=== PATIENT | female | born 1945 | race Caucasian/White ===

== ENCOUNTER 2019-07-07 18:56 | Inpatient (IN) | payer MEDICARE ==
[~2019-07-07] VITALS: Ht 157.5 cm; Wt 54.0 kg
[2019-07-07 19:07] VITALS: BP 160/77
--- NOTE | 2019-07-07 19:07 | NUR ---
PT BIB AMBULANCE. TRANSFERRED TO BED #1
--- NOTE | 2019-07-07 19:35 | NUR ---
74 Y/O FEMALE BIBA FROM HOME. PRESENTS TO ED, CHIEF COMPLAINT OF SYNCOPE. PT STATES REACHING FOR HER PHONE WHEN SHE FELT DIZZINESS AND FAINTED. PT DENIES ANY HEAD TRAUMA. PT C/O OF LOWER BACK AND LEFT KNEE PAIN, 03/15. NO DEFORMITY NOTED. NO BLEEDING NOTED. PT AOX4. DENIES ANY DIZZINESS OR HEADACHE DURING ASSESSMENT. PT PLACED ON MONITOR. PT AT STABLE CONDITION. WILL CONTINUE TO MONITOR.
[2019-07-07 19:58] LABS: BASOPHILS # (AUTO) 0.1 K/uL (0.00-0.22); BASOPHILS % (AUTO) 1.1 % (0.0-2.0); EOSINOPHILS # (AUTO) 0.2 K/uL (0-0.4); EOSINOPHILS % (AUTO) 3.8 % (0.0-4.0); HEMOGLOBIN 10.6 g/dL (12.0-16.0); LYMPHOCYTES # (AUTO) 2.3 K/uL (2.5-16.5); LYMPHOCYTES % (AUTO) 41.8 % (20.5-51.1); MEAN CORPUSCULAR HEMOGLOBIN 31 pg (27-31); MEAN CORPUSCULAR HGB CONC 33 g/dL (33-37); MONOCYTES # (AUTO) 0.7 K/uL (0.8-1.0); MONOCYTES % (AUTO) 13.4 % (1.7-9.3); NEUTROPHILS # (AUTO) 2.1 K/uL (1.8-7.7); NEUTROPHILS % (AUTO) 39.9 % (42.2-75.2); PLATELET COUNT (AUTO) 235 K/uL (140-450); RED CELL DISTRIBUTION WIDTH 14.1 % (11.6-13.7); WHITE BLOOD COUNT (AUTO) 5.4 K/uL (4.8-10.8)
--- NOTE | 2019-07-07 20:18 | NUR ---
PT TAKEN CT Addendum: 07/07/19 at 2036 by [email or web address] PT TAKEN TO XRAY
[2019-07-07 20:23] LABS: ANION GAP 13.7 (8-16); CARBON DIOXIDE 24.4 mmol/L (21-32); CHLORIDE 93 mmol/L (98-107); CREATININE 1.2 mg/dL (0.6-1.3); GLUCOSE 84 mg/dL (74-106); POTASSIUM 4.1 mmol/L (3.5-5.1); SODIUM SERUM 127 mmol/L (136-145); UREA NITROGEN, BLOOD 26 mg/dL (7-18)
[2019-07-07 20:30] LABS: ALBUMIN 3.4 g/dL (3.4-5.0); ASPARTATE AMINOTRANSFERASE 67 U/L (15-37); TOTAL BILIRUBIN 0.4 mg/dL (0.0-1.0)
[2019-07-07] MEDS ORDERED: MORPHINE SULFATE 4 MG/ML SYR IVP ONE (20:30)
[2019-07-07] MEDS ORDERED: ONDANSETRON 4 MG/2 ML VIAL IVP ONE (20:30)
--- NOTE | 2019-07-07 20:50 | NUR ---
PERFORMED STRAIGHT CATH. PT TOLERATED PROCEDURE. 200ML URINE COLLECTED.
[2019-07-07 21:30] LABS: APPEARANCE,URINE CLEAR (CLEAR); BILIRUBIN,URINE NEGATIVE (NEGATIVE); BLOOD, URINE NEGATIVE (NEGATIVE); COLOR,URINE YELLOW (YELLOW); LEUKOCYTE ESTERASE ,URINE NEGATIVE (NEGATIVE); NITRITE, URINE NEGATIVE (NEGATIVE); PH,URINE 6.5 (5.0-9.0); UGLUCOSE NEGATIVE (NEGATIVE)
--- NOTE | 2019-07-07 22:46 | NUR ---
PT LAYING IN BED, RR EVEN AND UNLABORED. REPORTS 5/10 TOLERABLE POSTERIOR NECK PAIN AT THIS TIME. PT ABLE TO AMBULATE WITH STEADY GAIT AND MINIMAL 1 PERSON ASSIST TO RESTROOM, DENIES DIZZINESS. DR GRIFFIN SPOKE WITH PT, AGREED TO ADMIT PT FOR OBSERVATION. ALL NEEDS MET.
--- NOTE | 2019-07-07 23:00 | NUR ---
DAUGHTER WILL BRING THE HOME MEDICATION LIST TOMORROW.
[2019-07-07] MEDS ORDERED: MECLIZINE 25 MG TAB PO PRN (23:10)
[2019-07-07] MEDS ORDERED: LORazepam 2 MG/ML VIAL IM/IVP PRN (23:10)
[2019-07-07] MEDS ORDERED: ACETAMINOPHEN 325 MG TAB PO PRN (23:10)
[2019-07-07] MEDS ORDERED: ZOLPIDEM 5 MG TAB PO PRN (23:10)
[2019-07-07] MEDS ORDERED: MORPHINE SULFATE 2 MG/ML SYR IVP PRN (23:10)
[2019-07-07] MEDS ORDERED: DOCUSATE SODIUM 100 MG GELCAP PO PRN (23:10)
[2019-07-07 23:47] LABS: BARBITURATE, URINE NEG. ng/ml (NEG <=200); BENZODIAZEPINE, URINE NEG. ng/mL (NEG <=200); CANNABINOID, URINE NEG. ng/mL (NEG <=50); COCAINE, URINE NEG. ng/mL (NEG <=300); OPIATE, URINE NEG. ng/mL (NEG <=2000); PHENCYCLIDINE SCREEN,URINE NEG. ng/mL (NEG <=25)
--- NOTE | 2019-07-07 23:55 | NUR ---
PT TRANSFERRED TO [facility]. REPORT GIVEN TO ADINA REYES. PT AT STABLE CONDITION.
[2019-07-08] VITALS: BP 151/65
--- NOTE | 2019-07-08 | NUR ---
Patient arrived in unit via gurney, assisted by FORESTER AIDE. Patient able to ambulate from rney to bed with 1-person assist. Patient A/Ox4, able to make needs known, Belgian speaking. Introduced self, updated board, oriented patient to room and hospital environment. No SOB or distress noted, on room air. IV site noted on left antecubital, 20 gauge, intact. Vitals upon admission are as follows: BP 151/65, HR 70, RR 16, Temp 97.8, O2Sat 100% on room air. Chief complaint is acute hip pain and neck pain, s/p fall. DX is Syncope, Weakness. Skin intact. Bed in the lowest position, call light within reach. Initial assessment done. Will continue to monitor.
[2019-07-08] MEDS ORDERED: HYDR12.543 PO ×2 (00:09→00:40)
[2019-07-08] MEDS ORDERED: ROPI0.256 PO ×2 (00:09→00:40)
[2019-07-08] MEDS ORDERED: MIRT15TA PO ×2 (00:09→00:40)
[2019-07-08] MEDS ORDERED: METO25TA PO ×2 (00:09→00:40)
[2019-07-08 00:19] LABS: PROTHROMBIN TIME 9.9 secs (10.8-13.4)
[2019-07-08 00:20] LABS: MAGNESIUM 1.7 mg/dL (1.8-2.4); PHOSPHORUS 3.3 mg/dL (2.5-4.9); THYROID STIMULATING HORMONE 0.08 uIU/mL (0.34-3.74)
[2019-07-08] MEDS: NACL 0.9% 1,000 ML IV SCH ×3 (00:30→22:24)
[2019-07-08] MEDS: METOPROLOL 25 MG TAB PO SCH ×3 (00:31→20:29)
[2019-07-08] MEDS ORDERED: PNEUMOCOCCAL VACCINE 23 MCG/0.5 ML VIAL IMVAC SCH (00:50)
--- NOTE | 2019-07-08 02:10 | NUR ---
Checks made; patient resting comfortably, visible chest rise and fall noted.
[2019-07-08 04:00] VITALS: BP 132/62
--- NOTE | 2019-07-08 04:15 | NUR ---
Rounds done; patient asleep, eyes closed, visible chest rise and fall noted.
--- NOTE | 2019-07-08 06:10 | NUR ---
Vitals stable, due meds given. Will endorse to AM shift RN for continuity of care.
--- NOTE | 2019-07-08 07:10 | NUR ---
REPORT RECEIVED FROM NURSE DAHLIA PT SLEEPING, AROUSABLE TO VERBAL STIMULI. DENIES PAIN OR DISCOMFORT. NO S/S OF ACUTE DISTRESS NOTED AT THIS TIME. CALL LIGHT AND PERSONAL ITEMS WITHIN EASY REACH, SAFETY AND FALL PRECAUTIONS IN PLACE,NO S/S OF ACUTE DISTRESS AT THIS TIME, WILL CONTINUE TO MONITOR.
[2019-07-08 08:00] VITALS: BP 148/77
[2019-07-08 08:21] LABS: BASOPHILS # (AUTO) 0.1 K/uL (0.00-0.22); BASOPHILS % (AUTO) 1.3 % (0.0-2.0); EOSINOPHILS # (AUTO) 0.2 K/uL (0-0.4); EOSINOPHILS % (AUTO) 4.2 % (0.0-4.0); HEMATOCRIT 30.9 % (36-48); HEMOGLOBIN 10.4 g/dL (12.0-16.0); LYMPHOCYTES % (AUTO) 40.8 % (20.5-51.1); MEAN CORPUSCULAR HEMOGLOBIN 32 pg (27-31); MEAN CORPUSCULAR HGB CONC 34 g/dL (33-37); MEAN CORPUSCULAR VOLUME 94.5 fL (80-94); MONOCYTES # (AUTO) 0.6 K/uL (0.8-1.0); MONOCYTES % (AUTO) 12.3 % (1.7-9.3); NEUTROPHILS # (AUTO) 2.1 K/uL (1.8-7.7); NEUTROPHILS % (AUTO) 41.4 % (42.2-75.2); PLATELET COUNT (AUTO) 226 K/uL (140-450); RED BLOOD CELL COUNT(AUTO) 3.27 MIL/uL (4.20-5.40)
[2019-07-08 08:24] LABS: CHOL/HDL RATIO 6.1 (1-4.5); MAGNESIUM 1.6 mg/dL (1.8-2.4); PHOSPHORUS 3.3 mg/dL (2.5-4.9)
--- NOTE | 2019-07-08 08:40 | NUR ---
CT NOTIFIED PT NPO, CONSENT PENDING,WILL NOTIFY WHEN CONSENT COMPLETE.
[2019-07-08 08:50] LABS: ANION GAP 16.3 (8-16); CARBON DIOXIDE 24.2 mmol/L (21-32); CHLORIDE 95 mmol/L (98-107); GLUCOSE 71 mg/dL (74-106); POTASSIUM 4.5 mmol/L (3.5-5.1); SODIUM SERUM 131 mmol/L (136-145); UREA NITROGEN, BLOOD 21 mg/dL (7-18)
[2019-07-08] MEDS ORDERED: MAG SULF 2000 MG/WATER PREMIX 50 ML IV SCH (09:00)
[2019-07-08] MEDS ORDERED: HYDROCHLOROTHIAZIDE 12.5 MG PO SCH (09:00)
[2019-07-08] MEDS ORDERED: METOPROLOL 25 MG TAB PO SCH (09:00)
[2019-07-08] MEDS ORDERED: HYDROCHLOROTHIAZIDE 25 MG TAB PO SCH (09:00)
--- NOTE | 2019-07-08 09:00 | NUR ---
ATTEMPTED TO REACH CT VIA MOTOR BUILDER WINDER CONNECTION, NO ANSWER.
--- NOTE | 2019-07-08 09:08 | NUR ---
PATIENT HAS BEEN SCREENED AND CATEGORIZED MODERATE NUTRITION RISK. PATIENT WILL BE SEEN WITHIN 3-5 DAYS OF ADMISSION. 07/10/19 07/12/[address]
--- NOTE | 2019-07-08 09:30 | NUR ---
CT DEPT NOTIFIED PT NPO AND CONSENT SIGNED, AWAITING TRANSPORT. PT AWARE AND AGREEABLE. CALL LIGHT AND PERSONAL ITEMS WITHIN EASY REACH, SAFETY AND FALL PRECAUTIONS IN PLACE,NO S/S OF ACUTE DISTRESS AT THIS TIME, WILL CONTINUE TO MONITOR.
[2019-07-08] MEDS: HYDROcodone/APAP 5/325 MG 1 TAB TAB PO PRN (11:00)
--- NOTE | 2019-07-08 11:00 | NUR ---
L A/C IV NO LONGER PATENT, PT DENIES PAIN AT SITE, NO REDNESS OR SWELLING NOTED, CATHETER REMOVED, CATH INTACT TOLERATED WELL. RE INSERTION, UNSUCCESSFUL, FLASH POSITIVE, UNABLE TO FLUSH, CHARGE NURSE NOTIFIED. PT REMAINS A/O, TOLERATED PROCEDURE WELL. CALL LIGHT AND PERSONAL ITEMS WITHIN REACH, SAFETY AND FALL PRECAUTIONS REMAIN IN PLACE, NO S/S OF ACUTE DISTRESS NOTED AT THIS TIME, WILL FOLLOW UP W CHARGE NURSE FOR iv INSERTION.
--- NOTE | 2019-07-08 11:04 | NUR ---
DISCHARGE PLANNING: CONTACTED LIZBET CHOWDHURY OF [facility] AT [phone] TO PROVIDE UPDATE, NO ANSWER. LEFT MESSAGE. Addendum: 07/08/19 at 1210 by Michelle Queen CONTACTED LIZBET CHOWDHURY OF [facility], UPDATED HER OF THE PATIENT'S CONDITION. I REQUESTED FOR THE AUTH FOR TODAY'S STAY. SHE STATED SHE WILL CALL ME BACK SOON SHE ENTER THE INFORMATION. PROVIDED HER OF MY CONTACT INFO. Addendum: 07/08/19 at 1450 by Michelle Queen ABLE TO GET A HOLD OF LIZBET CHOWDHURY AT [facility], REGARDING AUTH FOR TODAY'S STAY SHE STATED SHE SUBMITTED THE REQUEST BUT DID NOT GET ANY RESPONSE YET. SHE ALSO STATED I CAN FOLLOW UP WITH SEN AT [phone]. CONTACTED THE PROVIDED NUMBER, NO ANSWER. LEFT MESSAGE. Addendum: 07/08/19 at 1623 by Michelle Queen CM CONTACTED LIZBET SEN AT [phone] REGARDING THE AUTH FOR TODAY'S STAY. SHE PROVIDED ME WITH TRACKING NUMBER [id number]. Addendum: 07/09/19 at 3657 by Tati Cuellar CM DC PLANNING: FAXED THE REQUEST HOME HEALTH FOR PT TO [facility] [phone] CM TO FOLLOW. Addendum: 07/09/19 at 1531 by Tati Cuellar CM DC PLANNING CALLED SEN AT [facility] [phone] REGARDING THE CONTRACTED HOME HEALTH. PER SEN [facility] IS THE CONTRACTED HOME HEALTH. CALLED [facility] AT [phone] SPOKE WITH LILLIE ,STATED THEY ARE WAITING FOR AUTHORIZATION .PT CAN BE DISCHARGE HOME AND THEY WILL FOLLOW UP. NOTIFIED [facility] CHARGE NURSE.
--- NOTE | 2019-07-08 11:56 | NUR ---
Nurse Ortho Note: Basic Screen: Yes High Risk DC Screen Yes Name: WENDY PATEL Home Relationship: SON Pre-Admission Living Arrangements: Lives Alone Other: PATIENT LIVES IN APARTMENT NEXT DOOR TO SON AND [id number] Prior ADL Independent Current Home Health Name/Tel: N/A Current DME/02 Name/Tel: [facility] Current Hospice Name/Tel: N/A Current Dialysis Name/Tel: N/A Healthcare Decision Maker: Patient Advance Directive Yes Information Taught: Advance Directive Person Taught: Patient Teaching Tools: Verbal Factors Affecting Learning: None Participation Level: Active Evaluation: Verbalizes Understanding Needs Additional Education: No Discipline: Case Mgt/Social Svcs Tentative Discharge Plan/Destination: No Needs Identified Will require assistance post discharge: No Referred to [employer] Teacher: No Tentative Discharge Plan Summary: Patient is a 74-year-old female admitted for snycope and weakness. Patient has PMHX of recurrent pituitary adenoma status post resuction x3, major depressive disorder, restless leg syndrome, hypertension, hx of nectrotizing fascitis. Patient was admitted from home. SW verified demographics with patient. Patient requested to add [id number] Reva Patel to face sheet [phone]. Patient stated she has an advanced directive and would have it brought to [facility]. Patient reports no history of mental health or substance abuse. Patient's tentative plan after discharge is to return home. No further needs identified. Signature: LEEANNA Gutierrez Date: Jul 08, 2019 Time: 11:45
[2019-07-08 12:00] VITALS: BP 131/75
--- NOTE | 2019-07-08 12:20 | NUR ---
PT OFF UNIT TO CT [facility]IA [facility], NO S/S OF ACUTE DISTRESS NOTED AT THIS TIME.
--- NOTE | 2019-07-08 12:57 | NUR ---
PT RETURNED TO UNIT FROM [facility]. PT REMAINS A/O ABLE TO COMMUNICATE NEEDS. CALL LIGHT AND PERSONAL ITEMS PLACED WITHIN EASY REACH, SAFETY AND FALL PRECAUTIONS IN PLACE,NO S/S OF ACUTE DISTRESS AT THIS TIME, WILL CONTINUE TO MONITOR.
--- NOTE | 2019-07-08 13:23 | NUR ---
PATIENT REFUSED ECHO AT THIS TIME, ASKED ME TO COME BACK LATER. WILL TRY AGAIN AT A LATER TIME. RN NOTIFIED
--- NOTE | 2019-07-08 15:30 | NUR ---
PT RESTING IN BED, EYES CLOSED, APPEARS COMFORTABLE. CALL LIGHT AND PERSONAL ITEMS PLACED WITHIN EASY REACH, SAFETY AND FALL PRECAUTIONS IN PLACE,NO S/S OF ACUTE DISTRESS AT THIS TIME, WILL CONTINUE TO MONITOR.
[2019-07-08 16:00] VITALS: BP 139/67
--- NOTE | 2019-07-08 16:00 | NUR ---
DR PALMER NOTIFIED OF ABD US, CAROTID US, CT CHEST; NO NEW ORDERS AT THIS TIME.
[2019-07-08] MEDS: ONDANSETRON 4 MG/2 ML VIAL IM/IVP PRN ×2 (16:39→17:09)
--- NOTE | 2019-07-08 18:00 | NUR ---
PT REMAINS A/O ABLE TO COMMUNICATE NEEDS. DENIES PAIN DISCOMFORT, CURRENTLY HAVING DINNER. NO C/O DIZZINESS OR SYNCOPE NOTED DURING SHIFT. PT MEDICATED X2 FOR C/O NAUSEA WITH EFFECTIVENESS. CALL LIGHT AND PERSONAL ITEMS PLACED WITHIN EASY REACH, SAFETY AND FALL PRECAUTIONS IN PLACE,NO S/S OF ACUTE DISTRESS AT THIS TIME, WILL CONTINUE TO MONITOR.
--- NOTE | 2019-07-08 18:30 | NUR ---
SWAB OBTAINED FOR LIP CULTURE, PT TOLERATED WELL. Addendum: 07/08/19 at 1946 by Darrin Aceves RN NO SWAB OBTAINED, SKIN INTACT
--- NOTE | 2019-07-08 19:44 | NUR ---
PT RESTING AT THIS TIME APPEARS COMFORTABLE, REPORT ENDORSED TO ONCOMING SHIFT.
--- NOTE | 2019-07-08 19:45 | NUR ---
RECIEVED REPORT FROM AM NURSE. PT AAO X4. DENIES PAIN. NO DISCOMFORT REPORTED. IV PATENT AND FLUSHES WITH NS RUNNING AT 60 ML /HR. BED ALARM ON.
[2019-07-08 20:16] VITALS: BP 108/59
[2019-07-08] MEDS ORDERED: rOPINIRole 0.25 MG TAB PO SCH (21:00)
[2019-07-08] MEDS ORDERED: MIRTAZAPINE 15 MG TAB PO SCH (21:00)
--- NOTE | 2019-07-08 22:30 | NUR ---
PT. STILL AWAKE AND ASSISTED TO RESTROOM LOCATED INSIDE ROOM. PT. IS WITH WEAKNESS BUT ABLE TO AMBULATE . TELEMETRY MONITORING. ABLE TO VERBALIZE NEEDS WELL. CALL LIGHT WITH IN REACH. BED ALARM ON.
[2019-07-09] VITALS: BP 102/42
--- NOTE | 2019-07-09 | NUR ---
SLEEPING WELL. NO COMPLAINTS DONE. NO RESTLESSNESS. CALL LIGHT WITH IN REACH AND BED ALARM ON. TELEMETRY MONITORING. NO S/S OF INFILTRATION TO IVF SITE.
--- NOTE | 2019-07-09 03:28 | NUR ---
SLEEPING AT THIS TIME. BED ALARM ON. CALL LIGHT WITH IN REACH. TELEMETRY MONITORING.
[2019-07-09 04:00] VITALS: BP 153/66
--- NOTE | 2019-07-09 06:26 | NUR ---
PT. SLEEPING WELL THIS SHIFT. NO RESTLESSNESS. ABLE TO VERBALIZE NEEDS WELL. NO COMPLAINT OF ANY PAIN DONE THIS SHIFT.
[2019-07-09 06:50] LABS: BASOPHILS # (AUTO) 0.1 K/uL (0.00-0.22); BASOPHILS % (AUTO) 1.3 % (0.0-2.0); EOSINOPHILS # (AUTO) 0.2 K/uL (0-0.4); EOSINOPHILS % (AUTO) 5.2 % (0.0-4.0); HEMATOCRIT 31.5 % (36-48); HEMOGLOBIN 10.5 g/dL (12.0-16.0); LYMPHOCYTES # (AUTO) 1.9 K/uL (2.5-16.5); LYMPHOCYTES % (AUTO) 43.1 % (20.5-51.1); MEAN CORPUSCULAR HEMOGLOBIN 32 pg (27-31); MEAN CORPUSCULAR HGB CONC 33 g/dL (33-37); MEAN CORPUSCULAR VOLUME 94.7 fL (80-94); MONOCYTES # (AUTO) 0.5 K/uL (0.8-1.0); MONOCYTES % (AUTO) 10.7 % (1.7-9.3); NEUTROPHILS # (AUTO) 1.7 K/uL (1.8-7.7); NEUTROPHILS % (AUTO) 39.7 % (42.2-75.2); PLATELET COUNT (AUTO) 230 K/uL (140-450); RED BLOOD CELL COUNT(AUTO) 3.33 MIL/uL (4.20-5.40); RED CELL DISTRIBUTION WIDTH 14.5 % (11.6-13.7); WHITE BLOOD COUNT (AUTO) 4.4 K/uL (4.8-10.8)
[2019-07-09 06:56] LABS: ANION GAP 16.8 (8-16); CHLORIDE 96 mmol/L (98-107); CREATININE 0.9 mg/dL (0.6-1.3); GLUCOSE 72 mg/dL (74-106); POTASSIUM 3.8 mmol/L (3.5-5.1); SODIUM SERUM 130 mmol/L (136-145); UREA NITROGEN, BLOOD 17 mg/dL (7-18)
[2019-07-09 07:07] LABS: PHOSPHORUS 3.4 mg/dL (2.5-4.9)
--- NOTE | 2019-07-09 07:57 | NUR ---
RECEIVED BEDSIDE REPORT FROM PM RN PT APPEARS STABLE AND IN NO APPARENT DISTRESS. ALL SAFETY MEASURES ARE IN PLACE WILL CONTINUE TO MONITOR.
[2019-07-09 08:05] VITALS: BP 122/70
[2019-07-09 08:10] LABS: T4 (THYROXINE) 10.5 ug/dL (4.5-12.0)
--- NOTE | 2019-07-09 08:46 | NUR ---
PT REFUSED LISINOPRIL. PT STATED SHE STOPPED TAKING THE MEDICATION BECAUSE IT CAUSED NAUSEA. INFORMED PT THAT I WILL SPEAK WITH HER DRLyssa AND SEE WHAT I CAN DO.
[2019-07-09] MEDS: LISINOPRIL 5 MG TAB PO SCH ×2 (09:00→09:01)
[2019-07-09] MEDS ORDERED: LEVO0.087 PO (09:17)
--- NOTE | 2019-07-09 09:45 | NUR ---
RECEIVED DISCHARGE ORDERS. INFORMED PT OF PLAN FOR DISCHARGE PT STATED SHE WILL CONTACT HER FAMILY MEMBERS AND ARRANGE FOR SOMEONE TO PICK HER UP.
[2019-07-09] MEDS ORDERED: METO50TE2 PO (10:05)
--- NOTE | 2019-07-09 10:05 | NUR ---
SPOKE WITH DR. MILLS ABOUT PT REFUSING LISINOPRIL AND THAT THE PATIENT WOULD LIKE HER METROPLOL STATED SHE WILL CHANGE IT.
[2019-07-09] MEDS ORDERED: METOPROLOL SUCCINATE 50 MG TABER PO SCH (10:30)
[2019-07-09] MEDS: HYDROcodone/APAP 5/325 MG 1 TAB TAB PO PRN (10:53)
[2019-07-09 12:05] VITALS: BP 135/73
--- NOTE | 2019-07-09 12:06 | NUR ---
FREQUENT ROUNDING ON PT PT APPEARS STABLE AND IN NO APPARENT DISTRESS. ALL SAFETY MEASURES ARE IN PLACE WILL CONTINUE TO MONITOR
--- NOTE | 2019-07-09 14:36 | NUR ---
FREQUENT ROUNDING ON PT PT APPEARS STABLE AND IN NO APPARENT DISTRESS. ALL SAFETY MEASURES ARE IN PLACE WILL CONTINUE TO MONITOR
--- NOTE | 2019-07-09 16:02 | NUR ---
PTS FAMILY MEMBER IS AT BEDSIDE. REMOVED IV IV TIP INTACT. REMOVED ID BAND. ALL SAFETY MEASURES ARE IN PLACE. PROVIDED INFORMATION FOR [facility]. FOR HER PHYSICAL THERAPY FOR HER HOME. PROVIDED PT WITH HER INFORMATION ON FOLLOW UP APPOINTMENT, ANSWERED ALL QUESTIONS. PT WHEELED OFF THE UNIT BY SHOE REPAIR COBBLER. PT LEFT WITH ALL PERSONAL BELONGINGS.
[2019-07-10] MEDS ORDERED: LEVOTHYROXINE 0.088 MG TAB PO SCH (06:30)
== END 2019-07-09 16:10 | disposition home health service (06) | DRG 641 ==
LOC: MED 18:56 → MTU 23:19
PROVIDERS: ADMIT General Practice; ATTEND General Practice
DX: E86.0 Dehydration (principal); G90.9 Disorder of the autonomic nervous system, unspecified; E87.1 Hypo-osmolality and hyponatremia; I10 Essential (primary) hypertension; F32.9 Major depressive disorder, single episode, unspecified; G25.81 Restless legs syndrome; E11.9 Type 2 diabetes mellitus without complications; I95.1 Orthostatic hypotension; J98.4 Other disorders of lung; I65.22 Occlusion and stenosis of left carotid artery; Z90.710 Acquired absence of both cervix and uterus; Z88.0 Allergy status to penicillin; Z88.8 Allergy status to other drugs, medicaments and biological substances; Z90.49 Acquired absence of other specified parts of digestive tract; Z91.19 Patient's noncompliance with other medical treatment and regimen
CPT/HCPCS: 36415; 70450; 71045; 71260; 72100; 72125; 73502; 73560; 76705; 80048; 80053; 80305; 81001; 81003; 82140; 82150; 82550; 82553; 83036; 83690; 83735; 83880; 84100; 84134; 84436; 84443; 84484; 85025; 85610; 85730; 87081; 93005; 93880; 96374; 96375; 97112; 97116; 97161-GP; 97530; 99285; J2270; J2405; J3475; J7030; Q0092; Q9967

== ENCOUNTER 2023-08-09 16:31 | Emergency (ER) | payer MEDICARE ==
[~2023-08-09] VITALS: Ht 167.6 cm; Wt 66.2 kg
[~2023-08-09 16:31] MED LIST: LEVO0.087 PO; METO50TE2 PO; MIRT-120 PO; [UNRECOGNIZED DRUG - CODE] PO
[2023-08-09 16:43] VITALS: PULSE 73; RESP 16; TEMP 97.2; O2SAT 100
[2023-08-09] MEDS ORDERED: ACET-8905 PO (19:01)
[2023-08-09] MEDS ORDERED: IBUP-2218 PO (19:01)
[2023-08-09 19:55] VITALS: BP 153/84; PULSE 73; RESP 16; TEMP 97.2; O2SAT 100
== END 2023-08-09 19:55 | disposition home or self-care (01) ==
LOC: MED 16:31
DX: S42.031A Displaced fracture of lateral end of right clavicle, initial encounter for closed fracture (principal); R51.9 Headache, unspecified; M25.561 Pain in right knee; M25.571 Pain in right ankle and joints of right foot; W01.198A Fall on same level from slipping, tripping and stumbling with subsequent striking against other object, initial encounter; Y93.89 Activity, other specified; Y92.89 Other specified places as the place of occurrence of the external cause; Y99.8 Other external cause status
CPT/HCPCS: 70450; 72125; 73030; 73562; 73610; 99284